=== PATIENT | female | born 1985 | race Caucasian/White ===

== ENCOUNTER 2021-04-04 13:30 | Emergency (ER) | payer SELFPAY ==
[~2021-04-04] VITALS: Ht 170.2 cm; Wt 81.6 kg
[2021-04-04 13:38] VITALS: BP 120/64
--- NOTE | 2021-04-04 13:43 | NUR ---
PATIENT AMBULATED TO BED 3
--- NOTE | 2021-04-04 13:55 | NUR ---
35 YO F CAME IN WITH C/O VAGINAL BLEEDING, PT STATED HAS STARTED 3 WEEKS AGO. PT DENIES ANY PAIN. PT WAS REFFERED FROM PCP WITH HGB OF 5.0
[2021-04-04] MEDS ORDERED: NACL 0.9% 1,000 ML IV ONE ×2 (14:20)
--- NOTE | 2021-04-04 14:26 | NUR ---
BLOOD SENT TO LAB.
--- NOTE | 2021-04-04 14:34 | NUR ---
US BEDSIDE WITH PT
[2021-04-04 14:49] LABS: BASOPHILS # (AUTO) 0.1 K/uL (0.00-0.22); BASOPHILS % (AUTO) 1.4 % (0.0-2.0); EOSINOPHILS % (AUTO) 0.5 % (0.0-4.0); LYMPHOCYTES # (AUTO) 1.2 K/uL (2.5-16.5); LYMPHOCYTES % (AUTO) 23.5 % (20.5-51.1); MEAN CORPUSCULAR HEMOGLOBIN 21 pg (27-31); MEAN CORPUSCULAR HGB CONC 30 g/dL (33-37); MEAN CORPUSCULAR VOLUME 68.3 fL (80-94); MONOCYTES # (AUTO) 0.4 K/uL (0.8-1.0); MONOCYTES % (AUTO) 7.4 % (1.7-9.3); NEUTROPHILS # (AUTO) 3.5 K/uL (1.8-7.7); NEUTROPHILS % (AUTO) 67.2 % (42.2-75.2); PLATELET COUNT (AUTO) 195 K/uL (140-450); RED BLOOD CELL COUNT(AUTO) 2.05 MIL/uL (4.20-5.40); RED CELL DISTRIBUTION WIDTH 18.1 % (11.6-13.7); WHITE BLOOD COUNT (AUTO) 5.2 K/uL (4.8-10.8)
[2021-04-04 14:50] LABS: APPEARANCE,URINE CLEAR (CLEAR); BILIRUBIN,URINE NEGATIVE (NEGATIVE); BLOOD, URINE 3+ (NEGATIVE); COLOR,URINE YELLOW (YELLOW); LEUKOCYTE ESTERASE ,URINE TRACE (NEGATIVE); NITRITE, URINE NEGATIVE (NEGATIVE); UGLUCOSE NEGATIVE (NEGATIVE)
[2021-04-04 14:51] LABS: HEMOGLOBIN 4.2 g/dL (12.0-16.0)
--- NOTE | 2021-04-04 14:51 | NUR ---
PT BEDSIDE BEDSIDE WITH PT
--- NOTE | 2021-04-04 15:04 | NUR ---
Obtained consent for blood transfusion, placed in pt chart.
[2021-04-04 15:22] LABS: RBC,URINE 80-100 /HPF (0-5)
--- NOTE | 2021-04-04 15:49 | NUR ---
Pt ambulated to restroom with a steady gait.
--- NOTE | 2021-04-04 16:01 | NUR ---
PT RESTING BEDSIDE. VITAL SIGNS STABLE. BED TO LOWEST POSITION, SIDERAIL X1 UP. WILL CONTUINUE TO MONITOR.
--- NOTE | 2021-04-04 16:29 | NUR ---
BLOOD TRANSFUSION STARTED. VITALS STABLE. WILL MONITOR FOR NEXT 15 MIN Addendum: 04/04/21 at 1721 by [email or web address] 1ST UNIT OF BLOOD STARTED
--- NOTE | 2021-04-04 16:35 | NUR ---
BLOOD TRANFUSION STOPPED DUE TO PATIENT ANXIETY. MADE AWARE. WILL MONITOR PATIENT.
[2021-04-04] MEDS ORDERED: LORazepam 2 MG/ML VIAL IVP ONE (16:40)
[2021-04-04] MEDS ORDERED: diphenhydrAMINE 50 MG/ML VIAL IVP ONE (16:40)
--- NOTE | 2021-04-04 17:21 | NUR ---
1ST UNIT OF BLOOD TRANSFUSION RESTARTED. MD MADE AWARE. VITAL SIGNS STABLE. WILL CONTUINE TO MONITOR. MD MADE AWARE OF BLOOD TRANSFUSION STARTING.
--- NOTE | 2021-04-04 17:30 | NUR ---
PT RESTING BEDSIDE WITH EYES CLOSED. EQUAL RISE AND FALL OF CHEST NOTED. PT BEDSIDE. VITAL SIGNS STABLE (REFER TO VTIALS). WILL CONTUINE TO MONITOR
--- NOTE | 2021-04-04 18:32 | NUR ---
PT RESTING WITH EYES CLOSED. EQUAL CHEST RISE AND FALL NOTED. VITAL SIGNS STABLE. BEDSIDE WITH PT. WILL CONTUINE TO MONITOR
--- NOTE | 2021-04-04 19:14 | NUR ---
REPORT RECEIVED FROM ANNAMARIE BOLTON FOR CONTINUATION OF CARE AT THIS TIME.
--- NOTE | 2021-04-04 19:14 | NUR ---
REPORT GIVEN TO ANNAMARIE CARABALLO. TRANSFER OF CARE GIVEN
--- NOTE | 2021-04-04 19:14 | NUR ---
Patient laying in bed locked in lowest position x1 siderail up for patient safety. Patient AOX4, GCS 15, lung sounds clear throughout, breathing even and unlabored. Patient reports a slight headache and reports she is going to take a nap. Blood running at 200mL/hr, VSS. NAD noted, will continue to monitor.
--- NOTE | 2021-04-04 20:45 | NUR ---
2nd unit of blood has been initiated. Blood has been type and crossmatched. Blood sent from blood bank. Information on unit of blood checked against patient wristband at bedside by two nurses. All information matches. Patient or responsible libertarian informed of potential complications associated with blood transfusion. Informed of possible transfusion reaction symptoms. Aware of need to notify nurse at once of itching, shortness of breath, flushing, feeling of impending doom, or other symptoms not previously present. Vital signs taken within 5 minutes prior to initiation of transfusion. RN will remain with patient for first 15 minutes of transfusion at which time vital signs will be re-assessed.
--- NOTE | 2021-04-04 20:45 | NUR ---
2ND UNIT OF BLOOD TRANSFUSION STARTES. VSS. NAD NOTED, WILL CONTUINE TO MONITOR. AT BEDSIDE.
[2021-04-04] MEDS ORDERED: ACETAMINOPHEN 325 MG TAB PO ONE (21:20)
--- NOTE | 2021-04-04 21:36 | NUR ---
Patient sitting in bed locked inlowest positions, x1 siderail up, breathing even and unlabored. Patient states she feels fine, slightly tired. Provied patient w water. NAD, will continue to monitor. Mother in law at bedside.
[2021-04-04] MEDS ORDERED: FERR325E14 PO (21:42)
[2021-04-04] MEDS ORDERED: MEDR10TA PO (21:42)
--- NOTE | 2021-04-05 01:25 | NUR ---
3rd unit of blood completed, VSS, patient denies any pain. Patient reports she feels ok just tired. NAD noted, will continue to monitor.
[2021-04-05 02:12] VITALS: BP 108/58
--- NOTE | 2021-04-05 02:12 | NUR ---
Patient discharged with v/s stable. Written and verbal after care instructions given and explained. Patient alert, oriented and verbalized understanding of instructions. Ambulatory with steady gait. All questions addressed prior to discharge. ID band removed. Patient advised to follow up with PMD. Rx of Ferrous Sulfate, Provera given. Patient educated on indication of medication including possible reaction and side effects. Opportunity to ask questions provided and answered.
== END 2021-04-05 02:12 | disposition home or self-care (01) ==
LOC: MED 13:30
DX: D25.9 Leiomyoma of uterus, unspecified (principal); D50.9 Iron deficiency anemia, unspecified; R11.2 Nausea with vomiting, unspecified
CPT/HCPCS: 36415; 76830; 81001; 81025; 84702; 85025; 86886; 86900; 86901; 86920; 87086; 96361; 96374; 96375; 99285; J1200; J2060; J7030; P9016

== ENCOUNTER 2023-12-31 10:55 | Emergency (ER) | payer MEDICAID, OTHER ==
[~2023-12-31] VITALS: Ht 165.1 cm; Wt 83.9 kg
[~2023-12-31 10:55] MED LIST: FERR325E14 PO; MEDR10TA PO
[2023-12-31 11:05] VITALS: BP 132/99; PULSE 129; RESP 24; TEMP 97.4; O2SAT 99
[2023-12-31] MEDS: NACL 0.9% 1,000 ML IV ONE ×2 (11:23→12:53)
[2023-12-31] MEDS: ONDANSETRON 4 MG/2 ML VIAL IVP ONE ×2 (11:24→11:26)
[2023-12-31 11:30] VITALS: O2SAT 100
[2023-12-31 12:05] LABS: BASOPHILS % (AUTO) 0.2 % (0.0-2.0); EOSINOPHILS % (AUTO) 0.4 % (0.0-4.0); HEMATOCRIT 37.4 % (36-48); HEMOGLOBIN 12.2 g/dL (12.0-16.0); LYMPHOCYTES # (AUTO) 0.3 K/uL (2.5-16.5); LYMPHOCYTES % (AUTO) 6.2 % (20.5-51.1); MEAN CORPUSCULAR HEMOGLOBIN 27 pg (27-31); MEAN CORPUSCULAR HGB CONC 33 g/dL (33-37); MEAN CORPUSCULAR VOLUME 83.5 fL (80-94); MONOCYTES # (AUTO) 0.4 K/uL (0.8-1.0); MONOCYTES % (AUTO) 8.5 % (1.7-9.3); NEUTROPHILS # (AUTO) 3.9 K/uL (1.8-7.7); NEUTROPHILS % (AUTO) 84.7 % (42.2-75.2); PLATELET COUNT (AUTO) 175 K/uL (140-450); RED BLOOD CELL COUNT(AUTO) 4.48 MIL/uL (4.20-5.40); RED CELL DISTRIBUTION WIDTH 16.8 % (11.6-13.7); WHITE BLOOD COUNT (AUTO) 4.6 K/uL (4.8-10.8)
[2023-12-31 12:15] LABS: ANION GAP 18.6 (8-16); CALCIUM 8.5 mg/dL (8.5-10.1); CARBON DIOXIDE 20.8 mmol/L (21-32); CREATININE 0.9 mg/dL (0.6-1.3); INR 1.03 (0.8-1.2); POTASSIUM 3.4 mmol/L (3.5-5.1); PROTHROMBIN TIME 10.8 secs (10.8-13.4)
[2023-12-31 12:22] LABS: ALBUMIN 3.7 g/dL (3.4-5.0); TOTAL BILIRUBIN 0.3 mg/dL (0.0-1.0); TOTAL PROTEIN, SERUM 7.3 g/dL (6.4-8.2)
[2023-12-31 13:16] VITALS: O2SAT 100
[2023-12-31 13:19] LABS: APPEARANCE,URINE CLOUDY (CLEAR); BILIRUBIN,URINE NEGATIVE (NEGATIVE); BLOOD, URINE 3+ (NEGATIVE); COLOR,URINE RED (YELLOW); LEUKOCYTE ESTERASE ,URINE TRACE (NEGATIVE); NITRITE, URINE NEGATIVE (NEGATIVE); PH,URINE 8.5 (5.0-9.0); PROTEIN,URINE TRACE (NEGATIVE); UGLUCOSE NEGATIVE (NEGATIVE); UROBILINOGEN,URINE 0.2 EU/dL (0.2 - 1)
[2023-12-31 13:29] LABS: BACTERIA,URINE None Seen /HPF (None Seen); RBC,URINE TOO NUMEROUS TO COUN /HPF (0-5); SQUAMOUS EPITHELIAL CELL,UR None Seen /LPF (0-3 (FEW)); WBC,URINE 0-5 /HPF (0-5)
[2023-12-31] MEDS ORDERED: IBUP-2218 PO (14:02)
[2023-12-31] MEDS: POTASSIUM CHLORIDE 10 MEQ TABER PO ONE (14:07)
[2023-12-31 14:50] VITALS: BP 120/65; PULSE 109; RESP 20; TEMP 99.4; O2SAT 98
== END 2023-12-31 14:50 | disposition home or self-care (01) ==
LOC: MED 10:55
DX: N92.0 Excessive and frequent menstruation with regular cycle (principal); R55 Syncope and collapse; J45.909 Unspecified asthma, uncomplicated; Z79.899 Other long term (current) drug therapy
CPT/HCPCS: 36415; 71275; 80048; 80076; 81001; 81025; 84703; 85025; 85610; 86886; 86900; 86901; 93005; 96361; 96374; 99285; J2405; J7030; Q9967